=== PATIENT | female | born 1985 | race African-American/Black ===

== ENCOUNTER 2016-10-20 18:56 | Emergency (ER) | payer SELFPAY ==
[~2016-10-20] VITALS: Ht 154.9 cm; Wt 68.0 kg
[2016-10-20 19:08] VITALS: Ht 154.9 cm; Wt 68.0 kg
[2016-10-20] MEDS ORDERED: CYCL-319 PO (19:57)
[2016-10-20] MEDS ORDERED: PRED50TA PO (19:57)
[2016-10-20] MEDS ORDERED: HYDR-3011 PO (19:57)
[2016-10-20] MEDS ORDERED: IBUP-1542 PO (19:57)
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
== END 2016-10-20 20:00 | disposition home or self-care (01) ==
LOC: E/R 18:56
DX: R21 Rash and other nonspecific skin eruption (principal); S39.012A Strain of muscle, fascia and tendon of lower back, initial encounter; V89.2XXA Person injured in unspecified motor-vehicle accident, traffic, initial encounter
CPT/HCPCS: 99284